=== PATIENT | female | born 1985 | race Caucasian/White ===

== ENCOUNTER 2023-09-02 19:42 | Emergency (ER) | payer SELFPAY ==
[2023-09-02] VITALS (20 sets, daily range): BP systolic 121–140; BP diastolic 67–84; PULSE 70–89; RESP 14–22; TEMP 36.4–36.8; O2SAT 90–97; BMI 30.1
--- NOTE | 2023-09-02 20:31 | ED_ITS ---
HPI - SOB/Dyspnea General Chief Complaint: Shortness of Breath/Dyspnea Stated Complaint: ASTHMA ATTACK Time Seen by Provider: 09/02/23 20:28 Source: patient Mode of arrival: ambulance Limitations: no limitations History of Present Illness HPI Narrative: This 38-year-old female with a history of asthma who is a smoker presents for evaluation of several hours of cough, wheezing and shortness of breath consistent with an asthma attack. She does not have any rescue inhalers or medications for her asthma. She states this is because she does not have a family physician. She does not see a director decision support. She does have a cough that she states she is trying to exaggerate to clear mucus out of her lungs. She has not had any fever. She denies any chest pain dizziness or syncope. She denies the possibility of . She has no lower extremity pain or swelling. Related Data Home Medications Medication Instructions Recorded Confirmed aripiprazole 20 mg tablet (Abilify) 20 mg PO DAILY 09/02/23 09/02/23 sertraline 50 mg tablet (Zoloft) 50 mg PO DAILY 09/02/23 09/02/23 Allergies Allergy/AdvReac Type Severity Reaction Status Date / Time No Known Drug Allergies Allergy Verified 09/02/23 20:23 Review of Systems ROS Status of ROS 10 or more systems reviewed and unremark able except as noted in history and below [facility] Social History Smoking status: Current every day smoker Exam Narrative Exam Narrative: Nurses note and vital signs reviewed and patient is Mildly hypoxic with pulse ox of 91 percent on room air General: Alert, nontoxic, moderately overweight female, she is sitting up on the stretcher, no zan respiratory distress, she is able to speak in complete sentences Skin: Warm, dry, no pallor noted. There is no rash noted. Head: Normocephalic, atraumatic Eye: Normal conjunctiva, no drainage, EOMI. PERRL Ears, Nose, Mouth, and Throat: oral mucosa is moist. Nares patent. Mouth without vesicles. Cardiovascular: Regular Rate and Rhythm, no murmurs rubs or gallops appreciated Respiratory: Is expiratory wheezing and rhonchi are noted in all lung gonzalez, greatest in the upper lung gonzalez with mild accessory muscle use, patient is able to speak in complete sentences. Pulse ox noted to be low at 91 percent on room air, pulse ox improved to 93 percent on 2 L nasal cannula Back: non-tender, no CVA tenderness bilaterally to percussion. GI: Normal bowel sounds, no tenderness to palpation, no masses appreciated. No rebound, guarding, or rigidity noted. Musculoskeletal: The patient has no evidence of calf tenderness, no pitting edema Neurological: A&O x4, normal speech Psychiatric: Cooperative Constitutional Vital Signs, click to edit/add: Last Vital Signs Temp 97.6 F 09/02/23 22:17 Pulse 89 09/02/23 22:17 Resp 14 09/02/23 22:17 BP 130/79 09/02/23 22:17 Pulse Ox 97 09/02/23 22:17 O2 Del Method Room Air 09/02/23 22:17 O2 Flow Rate 2 09/02/23 21:57 Course Vital Signs Vital signs: Vital Signs Temperature 98.2 F 09/02/23 20:18 Pulse Rate 85 09/02/23 20:18 Respiratory Rate 22 09/02/23 20:18 Blood Pressure 128/84 09/02/23 20:18 Pulse Oximetry 91 L 09/02/23 20:18 Oxygen Delivery Method Room Air 09/02/23 20:18 Temperature 97.6 F 09/02/23 22:17 Pulse Rate 89 09/02/23 22:17 Respiratory Rate 14 09/02/23 22:17 Blood Pressure 130/79 09/02/23 22:17 Pulse Oximetry 97 09/02/23 22:17 Oxygen Delivery Method Room Air 09/02/23 22:17 Oxygen Delivery Flow Rate 2 09/02/23 21:57 MDM - SOB/Dyspnea MDM Narrative Medical decision making narrative: This 38-year-old female with a history of asthma who does not have a family phy sician or see a director decision support presents for evaluation of an asthma exacerbation that started just prior to arrival. She is a smoker. She does not have any albuterol to use as a rescue inhaler. She has never been intubated or admitted for her asthma. Upon arrival she was noted to be mildly hypoxic pulse ox of 91 percent on room air. She had diffuse wheezing and mild accessory muscle use. An IV was placed and she was medicated with DuoNeb, IV Solu-Medrol, IV fluids and IV magnesium. I reevaluation she is feeling much better. Her lungs are clear with an occasional expiratory wheeze but no accessory muscle use, her pulse is normal. Chest x-ray is negative for acute findings. She was given an albuterol MDI rescue inhaler for home use and prescription for albuterol MDIs and prednisone to use for the next 5 days. She was encouraged to quit smoking and follow up with outpatient pulmonology. She will be given referral to Dr. Deleon. Discharge Plan Discharge Chief Complaint: Shortness of Breath/Dyspnea Clinical Impression: Asthma with acute exacerbation Patient Disposition: Home, Self-Care Time of Disposition Decision: 22:04 Condition: Good Prescriptions / Home Meds: No Action sertraline [Zoloft] 50 mg tablet 50 mg PO DAILY aripiprazole [Abilify] 20 mg tablet 20 mg PO DAILY Instructions: Asthma (ED), Asthma (DC) Stand Alone Forms: Portal Instructions Referrals: Edmund Deleon DO [Physician] - 1 week Physician,Non-Staff, MD [Primary Care Provider] - 1 week Discharge Date/Time: 09/02/23 22:25
--- NOTE | 2023-09-02 20:31 | XR_ITS ---
The [address] [address] Patient Name: DEVON RODRIGUEZ MRN: [id number] date: 1985 Sex: F Assigned Patient Location: ER Current Patient Location: ER Accession/Order Number: [id number] Exam Date: 09/02/2023 22:05 Report Date: 09/02/2023 21:30 At the request of: LENORA MARKER Procedure: XR chest 1V EXAMINATION: XR chest 1V HISTORY: Wheezing and cough COMPARISON: None. TECHNIQUE: Portable chest FINDINGS: The lung parenchyma is free of consolidation or infiltrate. No pneumothorax or pleural effusion. The cardiac, mediastinal and hilar contours are normal. The visualized osseous structures exhibit no gross abnormality. XR/XR chest 1V IMPRESSION: No acute cardiopulmonary abnormality. Electronically authenticated by: TAMIKO KUNZ Date: 09/02/2023 21:30
[2023-09-02] MEDS: 0.9 % SODIUM CHLORIDE 1,000 ML 1000 ML IV (20:51)
[2023-09-02] MEDS: MAGNESIUM SULFATE IN WATER 2 GM/50 ML PREMIX IV (20:53)
[2023-09-02] MEDS: METHYLPREDNISOLONE SOD SUCC PF 125 MG/2 ML VIAL IVP (20:53)
[2023-09-02] MEDS: ALBUTEROL SULFATE 2.5 MG/3 ML VIAL NEB IH (20:58)
[2023-09-02] MEDS: IPRATROPIUM/ALBUTEROL SULFATE 3 ML AMPUL.NEB IH (20:58)
[2023-09-02] MEDS: ALBUTEROL SULFATE 200 PUFF/6.7 GM INHALER IH (22:15)
== END 2023-09-02 22:25 | disposition home or self-care (01) ==
PROVIDERS: Emergency Provider Emergency Medicine
DX: J45.901 Unspecified asthma with (acute) exacerbation (principal); F17.210 Nicotine dependence, cigarettes, uncomplicated; Z79.899 Other long term (current) drug therapy
CPT/HCPCS: 71045; 94640; 96365; 96375; 99284; J2930

== ENCOUNTER 2023-09-03 11:22 | Emergency (ER) | payer SELFPAY ==
[2023-09-03 11:25] VITALS: BP 132/85; PULSE 91; RESP 18; TEMP 36.8; O2SAT 91; BMI 30.1
--- NOTE | 2023-09-03 11:42 | ED.GENADUL1 ---
HPI - General Adult General Chief complaint: Nausea/Vomiting/Diarrhea Stated complaint: HEADACHE/ VOMITTING Time Seen by Provider: 09/03/23 11:30 Source: patient Mode of arrival: walk-in Limitations: no limitations History of Present Illness HPI narrative: Patient woke early this morning with frontal headache, nausea and vomiting. She was just evaluated in the ED last night for asthma exacerbation - she told me that her breathing was fine . She has been unable to keep anything down at home this morning. No flank or abdominal pain. No urinary symptoms. No blood in urine or BMs. Related Data Home Medications Medication Instructions Recorded Confirmed aripiprazole 20 mg tablet (Abilify) 20 mg PO DAILY 09/02/23 09/03/23 sertraline 50 mg tablet (Zoloft) 50 mg PO DAILY 09/02/23 09/03/23 Previous Rx's Medication Instructions Recorded ondansetron 4 mg disintegrating 4 mg PO Q6H PRN headache, nausea 09/03/23 tablet or vomiting #20 tabs Allergies Allergy/AdvReac Type Severity Reaction Status Date / Time No Known Drug Allergies Allergy Verified 09/03/23 11:25 PFSH PFSH Social History Smoking status: Current every day smoker Exam Narrative Exam Narrative: Nurses notes and vital signs reviewed and patient is not hypoxic but RA POX 91%. afebrile General: Well-appearing and in no apparent distress. Skin: Warm, dry, no pallor noted. Head: Normocephalic, atraumatic. Neck: Supple, non-tender. no meningismus. Eye: Pupils are equal, round and EOMI. No scleral icterus. Cardiovascular: Regular Rate and Rhythm without murmur, gallop or rub. Respiratory: No accessory muscle use or respiratory distress. Lungs are clear to auscultation, no wheezing, rales or rhonchi Chest Wall: no tenderness Back: No CVA tenderness Musculoskeletal: normal ROM GI: Abdomen is soft, non-distended. Normal bowel sounds. No masses appreciated. No tenderness to palpation. No rebound, guarding, or rigidity noted. Neurological: A&O x4. No cranial nerve dysfunction observed. No truncal ataxia. Moves all extremities. Sensation intact. Psychiatric: Cooperative and interactive. Normal mood and affect. Constitutional Vital Signs, click to edit/add: Last Vital Signs Temp 98.2 F 09/03/23 11:25 Pulse 91 H 09/03/23 11:25 Resp 18 09/03/23 11:25 BP 132/85 09/03/23 11:25 Pulse Ox 95 09/03/23 13:05 O2 Del Method Room Air 09/03/23 13:05 O2 Flow Rate 2 09/03/23 12:25 Course Vital Signs Vital signs: Vital Signs Temperature 98.2 F 09/03/23 11:25 Pulse Rate 91 H 09/03/23 11:25 Respiratory Rate 18 09/03/23 11:25 Blood Pressure 132/85 09/03/23 11:25 Pulse Oximetry 91 L 09/03/23 11:25 Oxygen Delivery Method Room Air 09/03/23 11:25 Temperature 98.2 F 09/03/23 11:25 Pulse Rate 91 H 09/03/23 11:25 Respiratory Rate 18 09/03/23 11:25 Blood Pressure 132/85 09/03/23 11:25 Pulse Oximetry 95 09/03/23 13:05 Oxygen Delivery Method Room Air 09/03/23 13:05 Oxygen Delivery Flow Rate 2 09/03/23 12:25 Medical Decision Making MDM Narrative Medical decision making narrative: peripheral IV established and blood drawn and sent for testing. The patient was ordered to receive normal saline IV fluid, IV Zofran, IV Toradol and IV Benadryl. Nasal cannula oxygen also given to help with her headache. Aside from WBC 18k, the rest of the blood testing was unremarkable. Patient informed of results. She had marked decrease in her headache and her nausea is resolved after ED treatment. Patient given a popsicle in the ED. She was discharged home with prescription for odt zofran - we discussed clear liquid diet and advancement as tolerated. ED return if she worsens. Since symptoms just began this morning, I advised to wait on Covid swab - give it another day and if symptoms return or persist she could get out-patient/home testing. Lab Data Lab results reviewed: Yes I reviewed the patient's lab results Labs: Lab Results 09/03/23 Range/Units 11:44 WBC 18.9 H (4.0-11.0) 10^3/uL RBC 4.42 (4.20-5.40) 10^6/uL Hgb 14.3 (12.0-16.0) g/dL Hct 42.7 (36.0-48.0) % MCV 96.6 (81.0-99.0) fL MCH 32.4 (26.7-34.0) pg MCHC 33.5 (29.9-35.2) g/dL RDW 13.4 (11.0-15.0) % Plt Count 289 (150-450) 10^3/uL MPV 11.1 (9.5-13.5) fL Seg Neuts % (Manual) 91.0 Lymphocytes % (Manual) 2.0 L (20.5-60.0) % Monocytes % (Manual) 7.0 (1.7-12.0) % Eosinophils % (Manual) 0.0 L (0.9-7.0) % Basophils % (Manual) 0.0 L (0.2-2.0) % Neutrophils # (Manual) 17.19 H (1.4-6.5) 10^3/uL Lymphocytes # (Manual) 0.37 L (1.20-3.80) 10^3/uL Monocytes # (Manual) 1.32 H (0.30-0.80) 10^3/uL Eosinophils # (Manual) 0.00 (0.00-0.70) 10^3/uL Basophils # (Manual) 0.00 (0.00-0.10) 10^3/uL Sodium 145 (136-145) mmol/L Potassium 3.8 (3.5-5.1) mmol/L Chloride 108 H (98-107) mmol/L Carbon Dioxide 23.9 (21.0-32.0) mmol/L Anion Gap 16.9 BUN 8.0 (7.0-18.0) mg/dL Creatinine 0.79 (0.55-1.02) mg/dL Est GFR ( Amer) >60 (>=60) Est GFR (Non-Af Amer) >60 (>=60) BUN/Creatinine Ratio 10.1 Glucose 126 H (74-106) mg/dL Calcium 8.7 (8.5-10.1) mg/dL Total Bilirubin 0.3 (0.2-1.0) mg/dL AST 16 (15-37) U/L ALT 22 (14-59) U/L Alkaline Phosphatase 67 (46-116) U/L Total Protein 7.6 (6.4-8.2) g/dL Albumin 3.9 (3.4-5.0) g/dL Globulin 3.7 g/dL Albumin/Globulin Ratio 1.1 Lipase 31.0 (16.0-77.0) U/L Discharge Plan Discharge Chief Complaint: Nausea/Vomiting/Diarrhea Clinical Impression: Migraine, Nausea & vomiting Patient Disposition: Home, Self-Care Time of Disposition Decision: 12:40 Prescriptions / Home Meds: New ondansetron 4 mg tablet,disintegrating 4 mg PO Q6H PRN (Reason: headache, nausea or vomiting) Qty: 20 0RF No Action sertraline [Zoloft] 50 mg tablet 50 mg PO DAILY aripiprazole [Abilify] 20 mg tablet 20 mg PO DAILY Instructions: Migraine Headache (ED), Acute Nausea and Vomiting (ED) Stand Alone Forms: Portal Instructions Referrals: Physician,Non-Staff, MD [Primary Care Provider] - 1 week Discharge Date/Time: 09/03/23 13:07
[2023-09-03] MEDS: DIPHENHYDRAMINE HCL 50 MG/ML (1ML) VIAL 25 MG IV (11:54)
[2023-09-03] MEDS: 0.9 % SODIUM CHLORIDE 1,000 ML 999 ML IV (11:54)
[2023-09-03] MEDS: ONDANSETRON PF 4 MG/2 ML VIAL IV (11:54)
[2023-09-03] MEDS: KETOROLAC TROMETHAMINE 30 MG/ML VIAL IVP (11:54)
[2023-09-03 11:58] LABS: Hematocrit 42.7 % (36.0-48.0); Hemoglobin 14.3 g/dL (12.0-16.0); Mean Corpuscular HGB Conc 33.5 g/dL (29.9-35.2); Mean Corpuscular Hemoglobin 32.4 pg (26.7-34.0); Mean Corpuscular Volume 96.6 fL (81.0-99.0); Mean Platelet Volume 11.1 fL (9.5-13.5); Platelet Count 289 10^3/uL (150-450); Red Blood Count 4.42 10^6/uL (4.20-5.40); Red Cell Distribution Width 13.4 % (11.0-15.0); White Blood Count 18.9 10^3/uL (4.0-11.0)
[2023-09-03 12:05] LABS: Alanine Aminotransferase 22 U/L (14-59); Albumin Globulin Ratio 1.1; Albumin Level 3.9 g/dL (3.4-5.0); Alkaline Phosphatase 67 U/L (46-116); Anion Gap 16.9; Aspartate Amino Transferase 16 U/L (15-37); BUN Creatinine Ratio 10.1; Bilirubin Total 0.3 mg/dL (0.2-1.0); Calcium 8.7 mg/dL (8.5-10.1); Carbon Dioxide 23.9 mmol/L (21.0-32.0); Chloride 108 mmol/L (98-107); Estimated GFR (African America >60 (>=60); Estimated GFR (Non-African Ame >60 (>=60); Globulin 3.7 g/dL; Glucose 126 mg/dL (74-106); Potassium 3.8 mmol/L (3.5-5.1); Sodium 145 mmol/L (136-145); Total Protein 7.6 g/dL (6.4-8.2)
[2023-09-03 12:14] LABS: Lymphocytes Absolute Manual 0.37 10^3/uL (1.20-3.80); Monocytes Absolute Manual 1.32 10^3/uL (0.30-0.80); Segmented Neut Absolute Manual 17.19 10^3/uL (1.4-6.5)
[2023-09-03 12:25] VITALS: O2SAT 91
--- NOTE | 2023-09-03 12:25 | PC.NURSE ---
pt 91% on RA. pt placed on 2L per NC pt O2 SAT up to 95%
[2023-09-03 13:05] VITALS: O2SAT 95
== END 2023-09-03 13:07 | disposition home or self-care (01) ==
PROVIDERS: Emergency Provider Emergency Medicine
DX: G43.909 Migraine, unspecified, not intractable, without status migrainosus (principal); R11.2 Nausea with vomiting, unspecified; F17.200 Nicotine dependence, unspecified, uncomplicated; J45.909 Unspecified asthma, uncomplicated
CPT/HCPCS: 36415; 80053; 83690; 85027; 96361; 96374; 96375; 99284